=== PATIENT | female | born 1960 | race Caucasian/White ===

== ENCOUNTER 2016-12-29 12:37 | Inpatient (IN) | payer MEDICARE ==
--- NOTE | ~2016-12-29 | HP ---
Unit #: [id number] #: [id number] Patient: ANA BHAKTA [id number] [address] [place], [place] [address] [id number] I MR#: [id number] NAME: ANA BHAKTA ROOM: 226 Age: 56 Sex: F Admission Date: 12/29/2016 : 1960 Attending Physician: Alexander Guidry Jr., M.D. Primary Care Physician: No Primary Care Physician HISTORY AND PHYSICAL CHIEF COMPLAINT Epigastric pain. HISTORY OF PRESENT ILLNESS This is a 56-year-old lady who has been experiencing intermittent epigastric pain that has been occurring for the last 3 months. It became more intense on and was associated with an episode of vomiting. The vomiting was nonbloody. She has not been able to correlate the pain with any preceding events. She has only been eating once a day, but has not been having any weight loss either. They attributed this to her being hypothyroid. PAST SURGICAL HISTORY Significant for thyroidectomy. MEDICATIONS Please med rec list. ALLERGIES She has no known drug allergies. PAST MEDICAL HISTORY Significant for hypertension and hypothyroidism. SOCIAL HISTORY She denies any tobacco or alcohol use. FAMILY HISTORY Significant for a sister who at the age of 50 from liver cancer. REVIEW OF SYSTEMS Negative for fevers. She has had decrease in appetite. She denies any jaundice. She has had no other signs of peptic ulcer disease or change in bowel habits. PHYSICAL EXAMINATION VITAL SIGNS: Temperature is 97.7, heart rate 97, respiratory rate is 18, blood pressure is 135/81, and BMI is 32. GENERAL APPEARANCE: She is in no acute distress. HEENT: Pupils are equal and reactive to light and accommodation and her extraocular muscles are intact. NECK: Without masses or bruits. LUNGS: Show good breath sounds bilaterally with equal air exchange. Unit #: [id number] #: [id number] Patient: ANA BHAKTA CARDIAC: Shows regular rate and rhythm without murmur. ABDOMEN: Soft and nondistended. She has some 1-2+ tenderness in the epigastric region. EXTREMITIES: Without edema or cyanosis. NEUROLOGIC: She is alert and oriented. There are no focal deficits. DIAGNOSTIC STUDIES LABORATORY: White blood count is 8,000 and hemoglobin is 14. LFTs are normal. IMAGING: Ultrasound showed what they thought was a gallbladder mass that measured 6.4 x 2.8 cm. There were no signs of cholecystitis on the ultrasound. CT scan was done that was more consistent with gallstones and really refuted the likelihood of this being a malignancy. OVERALL IMPRESSION This is a 56-year-old lady who likely has acute cholecystitis versus symptomatic cholelithiasis. Doubt that this is a gallbladder mass based on the CT scan findings. Her symptoms certainly are consistent with gallbladder disease. We will proceed with diagnostic laparoscopy and laparoscopic cholecystectomy. I described the risks and benefits of the procedure including possibility of having to convert to an open procedure as well as risks of bleeding, bile lead, and common bile duct injury. They also understand that if intraoperative findings show what the ultrasound suggested, which was gallbladder carcinoma, with any type of extension into the liver that we may need to abort the procedure and have her transferred downtown for surgical oncology evaluation. Dictated by Yakov Garcia III, M.D. VCL/betzy TD: 12/30/2016 08:38 JOB #: [id number] HISTORY AND PHYSICAL Page 1 of 1 X Yakov Garcia III, MD X HISTORY AND PHYSICAL
--- NOTE | ~2016-12-29 | CT2 ---
[facility] A Service of [facility] RADIOLOGY TEXT RESULTS PATIENT: ANA BHAKTA LOCATION: [facility] 202- : 62 UNIT #: [id number] AGE: [address]: Alexander Guidry MD SEX: F ORDER DR: [id number] [place] [id number] [facility]. [place], [place] [address] [id number] I MR#: [id number] Acc #: [id number] NAME: ANA BHAKTA : 1960 SEX: F STUDY DATE/TIME: 12/29/2016 16:36 UNIT: [facility] ROOM: 226 STUDY DESCRIPTION: CT Abd and Pelv W Cont Attending Physician: Alexander Guidry Jr., M.D. Ordering Physician: Tiny Moser M.D. Primary Care Physician: No MEDICAL IMAGING REPORT This report is preliminary unless electronic signature is present EXAM CT abdomen and pelvis with contrast HISTORY Chest pain that circles into back, nausea vomiting, gallbladder mass right upper quadrant mass on ultrasound today. COMPARISON Gallbladder sonogram 12/29/[address] exam was performed with one or more of the following radiation dose reduction techniques: automatic control, adjustment of mA and/or kV according to patient size, and iterative reconstruction. FINDINGS Axial images performed through the abdomen and pelvis following IV and oral contrast. Multiplanar reconstructed images reviewed at a workstation. The lung bases demonstrates low lung volumes with bibasilar atelectasis. No effusions. Liver demonstrates slightly heterogeneous enhancement probably represents a developing fatty infiltration of the liver with some sparing of the periportal region. The gallbladder is moderately distended and there is subtle regions of slightly increased attenuation within the gallbladder. A discrete gallbladder mass is not identified. In combination with the sonographic findings I suspect this represents a manifestation of tumefactive gallstone disease though I stated on the ultrasound gallbladder carcinoma cannot be entirely excluded though no discrete enhancing lesion is identified and a discrete solid lesion is not seen and therefore a gallbladder malignancy is considered less likely. No ductal dilatation. Appropriate surgical evaluation and followup is recommended and in the presence of a stone disease with a possible gallbladder neoplasm cholecystectomy may be considered. Pancreas and STS. [facility] A Service of [facility] RADIOLOGY TEXT RESULTS PATIENT: ANA BHAKTA LOCATION: A 202-01 : 62 UNIT #: [id number] AGE: [address]: Alexander Guidry MD SEX: F ORDER DR: adrenal glands unremarkable. There is a large exophytic cyst lower pole right kidney as well as multiple foci of right renal cortical scarring probably related to previous infection. Visualized GI tract unremarkable. There does appear to be very mild colonic wall thickening involving the descending and sigmoid colon which could represent some very mild focal colitis. Retroperitoneum unremarkable. PELVIS: Bladder is decompressed. Uterus and adnexa appear normal. Osseous structures remarkable for degenerative changes lumbar spine with multilevel spinal and foraminal stenosis. IMPRESSION 1. Mild to moderate gallbladder distension with a subtle areas of abnormal attenuation within the gallbladder lumen but a discrete gallbladder mass or enhancing structures not identified. Based on the sonographic findings and the CT I tend to favor that this represents gallstone disease with a tumefactive stone within the gallbladder. Gallbladder neoplasm is considered less likely. There is felt to be a small amount of gallbladder wall edema or pericholecystic fluid but no convincing evidence of acute cholecystitis. Further surgical evaluation may be warranted and in the setting of suspected gallstone disease as well as a possible gallbladder neoplasm elective cholecystectomy, may be warranted. 2. A subtle heterogeneous enhancement of the liver suggests some fatty infiltration. 3. Multifocal scarring right kidney probably related to chronic infection or reflux disease. Bilateral renal cyst noted. 4. Subtle colonic wall thickening involving the splenic flexure, descending colon and sigmoid colon could be related to incomplete distension though mild colitis not excluded. Dictated by... Seven Olivia M.D. THIS IS AN ELECTRONICALLY VERIFIED REPORT Seven Olivia M.D. at 01/01/2017 7:28 AM FEMI/juan j TD: 12/30/2016 04:16 JOB #: [id number] MEDICAL IMAGING REPORT Page 1 of 1 COPY
--- NOTE | ~2016-12-29 | EKG ---
PATIENT: ANA BHAKTA UNIT #: [id number] Ventricular Rate: 81 BPM Atrial Rate: 81 BPM P-R Interval: 174 ms QRS Duration: 70 ms Q-T Interval: 402 ms QTC Calculation(Bezet): 466 ms P [place]: 27 degrees Calculated T [place]: 14 degrees Diagnosis Line: Normal sinus rhythm Diagnosis Line: Non Specific ST Changes- Abnormality in lateral Diagnosis Line: leads Diagnosis Line: No previous ECGs available Diagnosis Line: Confirmed by VALENTINE JIANG MD ([id number]) on Diagnosis Line: 12/30/2016 4:54:06 PM INTERPRETING MD: ILDA
--- NOTE | ~2016-12-29 | OR ---
Unit #: [id number] #: [id number] Patient: ANA BHAKTA [id number] [address] [place], [place] [address] [id number] I MR#: [id number] NAME: ANA BHAKTA ROOM: 202 Date of Procedure: 12/30/2016 Admission Date: 12/29/2016 Surgeon: Alexander Guidry Jr., M.D. : 1960 Attending Physician: Alexander Guidry Jr., M.D. OPERATIVE REPORT INDICATIONS FOR PROCEDURE The patient is a 56-year-old [place] female who presented through the emergency room complaining of severe mid epigastric and right upper quadrant abdominal pain. Workup revealed evidence of a questionable tumor within the gallbladder or possibly just stones and chronic inflammation and acute cholecystitis. She was brought to the operating room at this time for laparoscopic cholecystectomy with diagnostic laparoscopy. She understands the procedure including the risks, including that of common duct injury, biliary leak, and bleeding, and intra-abdominal organ injury, and consents. This has been done through translation with a electric meter installer helper. PREOPERATIVE DIAGNOSES Acute on chronic cholecystitis with cholelithiasis. POSTOPERATIVE DIAGNOSES Acute on chronic cholecystitis with cholelithiasis, noting no obvious cancer. Bile within the gallbladder was green and sent for cultures. ANESTHESIA General with endotracheal intubation and 0.5% Marcaine with epinephrine locally. PROCEDURES PERFORMED Laparoscopic cholecystectomy with drainage of the right upper quadrant. DESCRIPTION OF PROCEDURE The patient was positioned in the supine position. After being anesthetized and intubated, she was prepped and draped in routine fashion for laparoscopic cholecystectomy. A small supraumbilical incision was made approximately 1 cm in length. This was carried down to the fascia. The fascia was lifted between 2 Kaci clamps and a Veress needle introduced into the abdomen. The abdomen was then inflated with CO2 gas. A 5-mm port was introduced in the abdomen followed by the camera. There was no evidence of any injury related to introduction of the port of the Veress needle. Brief intra-abdominal exploration was carried out. The patient was noted to have some adhesions in the right side of the abdomen as well as the lower portion of the abdomen. There was also a small amount of bilious stained fluid along the right lobe of the liver laterally. The gallbladder was obviously inflamed and tense. Liver appeared normal with no evidence of any metastatic disease. Two 5-mm ports were placed laterally and an 11-mm port just to the right of the upper midline. The gallbladder was then aspirated in order to be able to Unit #: [id number] #: [id number] Patient: ANA BHAKTA grasp it with a grasping clamp and the bile was sent for C and S. The dissection was then carried out in the triangle of Calot area and the cystic duct which was isolated was only 1 to 2 mm in diameter was hemoclipped x4 and divided approximately 1 cm from its junction with the common duct, which appeared normal. The cystic artery was identified, hemoclipped x3, and divided. There was a small cystic vein, which was also hemoclipped and divided. The gallbladder was then removed from its bed with the hook cautery using a current of 20 and basically just peeled out of the gallbladder bed itself with inflammation present. After it was freed up, it was placed in an EndoCatch bag and brought out through the larger port site after the port site was dilated with a Jessica clamp. The port was replaced. Subhepatic space checked. There was some slight oozing from the gallbladder bed, which was controlled with the Bovie cautery and it was felt that a drain was indicated as well as packing of Surgicel. A large Surgicel was packed in the gallbladder bed with no evidence of any leak or bleeding from the clips on the duct and cystic artery. After total hemostasis was noted, a 10 mm Juan-Lackey drain was placed in the subhepatic space and brought out through the lateral port site area as routine and CO2 was then expressed from the abdomen. The ports were removed. There was no evidence of any bleeding from the port sites. The fascia in the larger port site which had been stretched to allow for removal of the large gallbladder was then approximated with 2 [id number] 0 Vicryl sutures. The wounds were irrigated. After adequate hemostasis achieved with Bovie cautery, the skin edges were approximated with stainless-steel skin clips and skin stapling device. Sterile dressings were applied externally. Estimated blood loss less than 100 mL. The patient received less than 2000 mL of crystalloid solution during the procedure. Sponges and instrument counts were correct x3. There was one 10 mm Juan Lackey drain used in the subhepatic space as noted above. No complications. The patient was taken to the recovery room with stable vital signs in satisfactory condition. Dictated by... Alexander Guidry Jr., Thao ALEMAN/nupur TD: 12/31/2016 03:10 JOB #: [id number] OPERATIVE REPORT Page 1 of 1 X Alexander Guidry MD X PROCEDURE OPERATIVE NOTE
--- NOTE | ~2016-12-29 | US67 ---
[facility] A Service of [facility] & [facility] RADIOLOGY TEXT RESULTS PATIENT: ANA BHAKTA LOCATION: [facility] : 62 UNIT #: [id number] AGE: [address]: Tiny Moser MD SEX: F ORDER DR: [id number] [facility] [address] [facility]. [place], [place] [address] [id number] MR#: [id number] Acc #: [id number] NAME: ANA BHAKTA : 1960 SEX: F STUDY DATE/TIME: 12/29/2016 13:40 UNIT: [facility] ROOM: STUDY DESCRIPTION: US Gallbladder Attending Physician: Tiny Moser M.D. Ordering Physician: Tiny Moser M.D. Primary Care Physician: No Primary Care Physician MEDICAL IMAGING REPORT This report is preliminary unless electronic signature is present EXAM Gallbladder ultrasound 12/29/2016 INDICATIONS 56-year-old female with nausea, vomiting and midline abdominal pain for 2 days, diabetes, hypertension. No personal or family history of malignancy. No history of kidney stones. Sonographic imaging of the gallbladder was performed. COMPARISON STUDIES We have no comparisons. FINDINGS Pancreas obscured by bowel gas and not seen or evaluated. Survey images of the liver demonstrate long axis length of 14.8 cm. Portions of the liver were obscured by bowel gas and not seen or evaluated. There is no focal liver mass intrahepatic ductal dilatation or ascites. The gallbladder is abnormal. There is an oval shaped primarily hyperechoic solid appearing mass within the gallbladder lumen, dimensions are at least 6.4 x 2.8 cm. This is associated with posterior acoustical shadowing and the margins appear to abut the dependent and nondependent aspects the gallbladder wall. Color flow imaging demonstrates internal vascularity and the margins are ill-defined and this mass does not layer dependently within the gallbladder. Imaging findings concerning for a solid mass and potentially gallbladder carcinoma. Imaging features are somewhat atypical 4 tumefactive sludge and stones. CT would be complimentary for further assessment. No distinct gallbladder wall thickening. No sonographic Cohen sign was described by the technologist. No distinct pericholecystic fluid. The right kidney is nonobstructed. There is a dominant lower pole cyst on STS. [facility] A Service of [facility] & [facility] RADIOLOGY TEXT RESULTS PATIENT: ANA BHAKTA [facility] [id number] : [birth year] UNIT #: [id number] AGE: [address]: Tiny Moser MD SEX: F ORDER DR: the right measuring up to at least 6.2 cm. There is an additional upper pole cyst on the right measuring up to 2.7 cm. IMPRESSION 1. Abnormal examination. Findings have been called Dr. Moser at the time this dictation. The gallbladder is abnormal. There is a hyperechoic soft tissue echogenicity mass within the gallbladder lumen measuring 6.4 x 2.8 cm with internal color-flow. Findings are suspicious for gallbladder neoplasm and malignancy. There is some shadowing associated with the mass but this does not have typical layering features of tumefactive sludge or stones. CT would be complimentary for further assessment. 2. Survey images of the liver demonstrate no distinct liver mass or intra or extrahepatic biliary ductal dilatation. Extrahepatic common bile duct measures about 4 mm to the extent visualized. 3. Pancreas not visualized or assessed. 4. The right kidney is nonobstructed and there are cysts in the right kidney the largest of which is in the lower pole measuring 6.2 cm. STAT * RESULT Dictated by... Chilo Kramer M.D. THIS IS AN ELECTRONICALLY VERIFIED REPORT Chilo Kramer M.D. at 12/29/2016 4:55 PM Sheri TD: 12/29/2016 14:59 JOB #: [id number] MEDICAL IMAGING REPORT Page 1 of 1 COPY
--- NOTE | ~2016-12-29 | DS ---
Unit #: [id number] #: [id number] Patient: ANA BHAKTA [id number] [address] [address] [id number] I MR#: [id number] NAME: ANA BHAKTA ROOM: 202 Age: 56 Sex: F Admission Date: 12/29/2016 : 1960 Discharge Date: 01/02/2017 Attending Physician: Alexander Guidry Jr., M.D. Primary Care Physician: No Primary Care Physician DISCHARGE SUMMARY DISCHARGE DIAGNOSIS Gangrenous tense cholecystitis. No obvious malignancy. Pathology report pending. OPERATIVE PROCEDURE Laparoscopic cholecystectomy with cultures. DISCHARGE MEDICATIONS 1. Augmentin 875 mg 1 p.o. b.i.d. 2. Lortab 7.5 mg 1 p.o. q.4 h. p.r.n. pain. HISTORY OF PRESENT ILLNESS/HOSPITAL COURSE This is a 56-year-old white female who presented with acute mid epigastric, right upper quadrant abdominal pain with gallbladder questionable mass, but no signs of cholecystitis with what appeared to be gallstones. She was taken to surgery, where she was found to have a tense distended gallbladder with stones, with possible cholecystitis. Laparoscopic cholecystectomy was performed with cultures. There was no obvious malignancy. FLACA drain was placed in the right subhepatic space. The patient was postoperatively treated with intravenous antibiotics for two days. She gradually improved as far as her ambulation goes and on day number three she was afebrile. White blood cell count was normal. Liver function tests were normal. She is ready to be discharged. She will come back to see Dr. Guidry in the office. FLACA drain has been removed. Dictated by... Wesley Fournier M.D. RDM/ashok TD: 01/02/2017 09:22 JOB #: [id number] DISCHARGE SUMMARY Page 1 of 1 X Wesley Fournier MD X DISCHARGE SUMMARY
[2016-12-29 13:38] LABS: BASOPHIL% 0.2 % (0-2.5); EOSINOPHIL% 0.5 % (0.0-7.0); HEMATOCRIT 44.2 % (35.0-45.0); HEMOGLOBIN 14.7 gm/dL (12.0-16.0); LYMPHOCYTE# 1.1 X10e3 (1.0-3.5); LYMPHOCYTE% 13.2 % (17.0-45.0); MEAN CELL VOLUME 87.4 FL (83-96); MEAN CORPUSCULAR HEMOGLOBIN 29.1 PG (28-34); MEAN CORPUSCULAR HGB CONC 33.3 g/dL (30-36); MEAN PLATELET VOLUME 8.6 FL (6.5-11.5); MONOCYTE# 0.6 X10e3 (0-1.0); MONOCYTE% 7.4 % (3.0-12.0); NEUTROPHIL# 6.4 X10e3 (1.5-7.1); NEUTROPHIL% 78.7 % (40-75); PLATELET COUNT 160 X10e3 (140-420); RED BLOOD COUNT 5.05 X10e (3.90-5.30); RED CELL DISTRIBUTION WIDTH 13.6 % (11.0-15.5); WHITE BLOOD COUNT 8.2 X10e3 (4.0-10.5)
[2016-12-29 13:49] LABS: DIFF IND NO
[2016-12-29 13:59] LABS: ALBUMIN SERUM 4.7 g/dL (3.5-5.0); BILIRUBIN, DIRECT 0.1 mg/dL (0.0-0.2); BILIRUBIN,INDIRECT 0.9 mg/dL (0.0-0.9); BUN/CREATININE RATIO 16.66; CREATININE SERUM 0.6 mg/dL (0.6-1.4); GLOM FILT RATE Estimated 102.6 mL/min (>60); POTASSIUM 3.9 mmol/L (3.5-5.1); PROTEIN TOTAL SERUM 8.4 g/dL (6.0-8.3)
[2016-12-29 16:24] LABS: URINE SOURCE CLEAN CATCH
[2016-12-29 16:49] LABS: URINE APPEARANCE CLOUDY; URINE BLOOD NEG (NEG); URINE COLOR DK YELLOW; URINE GLUCOSE NEG (NEG); URINE KETONE 2+ (NEG); URINE LEUKOCYTE ESTERASE NEG (NEG); URINE NITRATE NEG (NEG); URINE PROTEIN 1+ (NEG); URINE SPECIFIC GRAVITY 1.035 (1.003-1.035)
[2016-12-29 16:53] LABS: CULTURE INDICATED? YES; URBCS1 AUWI 0-2 /[HPF] (0-2); URINE BACTERIA AUWI 1+ (NEGATIVE); URINE SQUAMOUS EPITHELIAL CELL OCC /[HPF]
[2016-12-29 16:59] LABS: URINE BILIRUBIN NEG (NEG)
[2016-12-30 08:34] LABS: BASOPHIL% 0.4 % (0-2.5); DIFF IND NO; EOSINOPHIL% 0.3 % (0.0-7.0); HEMATOCRIT 38.6 % (35.0-45.0); HEMOGLOBIN 12.8 gm/dL (12.0-16.0); LYMPHOCYTE# 0.8 X10e3 (1.0-3.5); LYMPHOCYTE% 8.4 % (17.0-45.0); MEAN CELL VOLUME 88.2 FL (83-96); MEAN CORPUSCULAR HEMOGLOBIN 29.1 PG (28-34); MEAN PLATELET VOLUME 8.7 FL (6.5-11.5); MONOCYTE# 1.3 X10e3 (0-1.0); MONOCYTE% 12.9 % (3.0-12.0); NEUTROPHIL# 7.6 X10e3 (1.5-7.1); PLATELET COUNT 118 X10e3 (140-420); RED BLOOD COUNT 4.38 X10e (3.90-5.30); RED CELL DISTRIBUTION WIDTH 13.2 % (11.0-15.5); WHITE BLOOD COUNT 9.7 X10e3 (4.0-10.5)
[2016-12-30 09:08] LABS: ALBUMIN SERUM 3.6 g/dL (3.5-5.0); BILIRUBIN,TOTAL 1.3 mg/dL (0.2-2.0); BUN/CREATININE RATIO 12.5; CALCIUM SERUM 8.1 mg/dL (8.4-10.2); CREATININE SERUM 0.8 mg/dL (0.6-1.4); GLOM FILT RATE Estimated 83.1 mL/min (>60); POTASSIUM 4.3 mmol/L (3.5-5.1); PROTEIN TOTAL SERUM 6.9 g/dL (6.0-8.3)
[2016-12-31 05:14] LABS: HEMATOCRIT 37.4 % (35.0-45.0); HEMOGLOBIN 12.4 gm/dL (12.0-16.0); MEAN CELL VOLUME 88.9 FL (83-96); MEAN CORPUSCULAR HEMOGLOBIN 29.5 PG (28-34); MEAN CORPUSCULAR HGB CONC 33.2 g/dL (30-36); MEAN PLATELET VOLUME 8.8 FL (6.5-11.5); RED BLOOD COUNT 4.2 X10e (3.90-5.30); RED CELL DISTRIBUTION WIDTH 13.8 % (11.0-15.5); WHITE BLOOD COUNT 13.3 X10e3 (4.0-10.5)
[2016-12-31 05:53] LABS: ALBUMIN SERUM 3.3 g/dL (3.5-5.0); BILIRUBIN,TOTAL 0.7 mg/dL (0.2-2.0); BUN/CREATININE RATIO 12.5; CALCIUM SERUM 7.9 mg/dL (8.4-10.2); CREATININE SERUM 0.8 mg/dL (0.6-1.4); GLOM FILT RATE Estimated 83.1 mL/min (>60); POTASSIUM 3.8 mmol/L (3.5-5.1); PROTEIN TOTAL SERUM 6.7 g/dL (6.0-8.3)
[2017-01-01 05:24] LABS: HEMATOCRIT 34.6 % (35.0-45.0); HEMOGLOBIN 11.6 gm/dL (12.0-16.0); MEAN CELL VOLUME 88.4 FL (83-96); MEAN CORPUSCULAR HEMOGLOBIN 29.7 PG (28-34); MEAN CORPUSCULAR HGB CONC 33.5 g/dL (30-36); MEAN PLATELET VOLUME 8.7 FL (6.5-11.5); RED BLOOD COUNT 3.91 X10e (3.90-5.30); RED CELL DISTRIBUTION WIDTH 13.5 % (11.0-15.5); WHITE BLOOD COUNT 8.9 X10e3 (4.0-10.5)
[2017-01-01 07:19] LABS: ALBUMIN SERUM 2.8 g/dL (3.5-5.0); BILIRUBIN,TOTAL 0.8 mg/dL (0.2-2.0); BUN/CREATININE RATIO 14.28; CALCIUM SERUM 7.8 mg/dL (8.4-10.2); CREATININE SERUM 0.7 mg/dL (0.6-1.4); GLOM FILT RATE Estimated 97.5 mL/min (>60); POTASSIUM 3.7 mmol/L (3.5-5.1); PROTEIN TOTAL SERUM 5.9 g/dL (6.0-8.3)
[2017-01-02] MEDS ORDERED: AUGMENTIN PO (07:45)
[2017-01-02] MEDS ORDERED: LORTAB 7.5-3251 EACH PO (07:45)
== END 2017-01-02 10:27 | disposition home or self-care (01) | DRG 419 ==
LOC: CED 12:37 → C2A 18:05
PROVIDERS: Emergency Medicine; Surgery
PROC: 0FT44ZZ Resection of Gallbladder, Percutaneous Endoscopic Approach (ICD-10-PCS; principal; 2016-12-30 11:00)
DX: K80.12 Calculus of gallbladder with acute and chronic cholecystitis without obstruction (principal); I10 Essential (primary) hypertension; E89.0 Postprocedural hypothyroidism; R41.82 Altered mental status, unspecified; T40.2X5A Adverse effect of other opioids, initial encounter; Y92.239 Unspecified place in hospital as the place of occurrence of the external cause
CPT/HCPCS: 74177; 76705; 80048; 80053; 80076; 81003; 83690; 85025; 85027; 87070; 87086; 87186; 87205; 88304; 93005; 96374; 96375; 96376; 99285; J0330; J1170; J1650; J2270; J2310; J2405; J2543; J2550; J2710; J3010; Q9967